=== PATIENT | male | born 2000 | race Caucasian/White ===

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

== ENCOUNTER → 2020-03-07 | Outpatient (REF) | payer OTHER ==
[2020-03-07 16:28] LABS: BASO % 0.6 % (0.0-1.0); EOS # 0.3 10^3/uL (0.0-0.5); EOS % 4.6 % (0.0-3.0); HEMATOCRIT 47.8 % (42.0-52.0); HEMOGLOBIN 15.8 g/dl (13.5-17.5); LYMPH # 2.2 10^3/uL (1.5-5.0); LYMPH % 33.9 % (24.0-44.0); MEAN CORPUSCULAR HGB CONC 33.1 g/dl (32.0-36.5); MEAN CORPUSCULAR VOLUME 87.9 fl (80.0-96.0); MONO # 0.6 10^3/uL (0.0-0.8); MONO % 10.1 % (0.0-5.0); NEUTROPHILS # 3.2 10^3/uL (1.5-8.5); NEUTROPHILS % 50.6 % (36.0-66.0); PLATELET COUNT, AUTOMATED 371 10^3/uL (150-450); RED BLOOD COUNT 5.44 10^6/uL (4.30-6.10); WHITE BLOOD COUNT 6.4 10^3/uL (4.0-10.0)
== END ==
LOC: M SFHCADAM 13:50
PROVIDERS: ATTEND Family Medicine
DX: R59.0 Localized enlarged lymph nodes (principal)

== ENCOUNTER 2021-02-23 12:23 | Emergency (ER) | payer OTHER ==
[~2021-02-23] VITALS: Ht 170.2 cm; Wt 75.0 kg
[2021-02-23 12:24] VITALS: BP 141/71
[2021-02-23] MEDS ORDERED: IBUP200T46 PO (12:42)
[2021-02-23 13:34] LABS: BASO % 0.7 % (0.0-1.0); EOS # 0.2 10^3/uL (0.0-0.5); EOS % 3.6 % (0.0-3.0); HEMATOCRIT 45.4 % (42.0-52.0); HEMOGLOBIN 15.7 g/dl (13.5-17.5); LYMPH # 2.2 10^3/uL (1.5-5.0); LYMPH % 39.3 % (24.0-44.0); MEAN CORPUSCULAR HEMOGLOBIN 30.3 pg (27.0-33.0); MEAN CORPUSCULAR HGB CONC 34.6 g/dl (32.0-36.5); MEAN CORPUSCULAR VOLUME 87.5 fl (80.0-96.0); MONO # 0.4 10^3/uL (0.0-0.8); MONO % 6.9 % (2.0-8.0); NEUTROPHILS # 2.7 10^3/uL (1.5-8.5); NEUTROPHILS % 49.1 % (36.0-66.0); PLATELET COUNT, AUTOMATED 357 10^3/uL (150-450); RED BLOOD COUNT 5.19 10^6/uL (4.30-6.10); WHITE BLOOD COUNT 5.5 10^3/uL (4.0-10.0)
[2021-02-23] MEDS ORDERED: ISOVUE-370 76% 100ML VIAL As Ordered ONE (13:43)
[2021-02-23 14:03] LABS: ALBUMIN 4.2 GM/DL (3.2-5.2); BILIRUBIN,DIRECT 0.1 MG/DL (0.0-0.2); BILIRUBIN,TOTAL 0.4 MG/DL (0.2-1.0); TOTAL PROTEIN 7.4 GM/DL (6.4-8.2)
== END 2021-02-23 15:55 | disposition home or self-care (01) ==
LOC: M ED 12:23
DX: R07.89 Other chest pain (principal); R06.02 Shortness of breath
CPT/HCPCS: 36415; 71275; 80047; 80076; 84484; 85025; 93005; 99284; Q9967

== ENCOUNTER 2022-07-13 17:18 | Emergency (ER) | payer OTHER ==
[~2022-07-13] VITALS: Ht 170.2 cm; Wt 77.1 kg
[~2022-07-13 17:18] MED LIST: IBUP200T46 PO
[2022-07-13] MEDS ORDERED: NS 1,000 ML IV ONE (17:45)
[2022-07-13] MEDS ORDERED: methylPREDNISolone 125MG 2ML VIAL IV ONE (17:45)
[2022-07-13] MEDS ORDERED: ALBUTEROL SULFATE 2.5MG/0.5ML INH NEB SOLN NEB SCH (17:45)
[2022-07-13] MEDS ORDERED: FAMOTIDINE 20MG/2ML VIAL IVP ONE (17:45)
[2022-07-13] MEDS ORDERED: diphenhydrAMINE 50MG/ML VIAL IV ONE (17:45)
[2022-07-13] MEDS ORDERED: ZYRTTAB8 PO (17:48)
[2022-07-13 18:15] LABS: BASO % 0.6 % (0.0-1.0); EOS # 0.1 10^3/uL (0.0-0.5); EOS % 1.5 % (0.0-3.0); HEMATOCRIT 47.3 % (42.0-52.0); HEMOGLOBIN 16.7 g/dl (13.5-17.5); LYMPH # 2.6 10^3/uL (1.5-5.0); MEAN CORPUSCULAR HEMOGLOBIN 30.3 pg (27.0-33.0); MEAN CORPUSCULAR HGB CONC 35.3 g/dl (32.0-36.5); MEAN CORPUSCULAR VOLUME 85.8 fl (80.0-96.0); MONO # 0.4 10^3/uL (0.0-0.8); MONO % 6.3 % (2.0-8.0); NEUTROPHILS # 3.7 10^3/uL (1.5-8.5); NEUTROPHILS % 53.5 % (36.0-66.0); PLATELET COUNT, AUTOMATED 380 10^3/uL (150-450); RED BLOOD COUNT 5.51 10^6/uL (4.30-6.10); WHITE BLOOD COUNT 6.9 10^3/uL (4.0-10.0)
[2022-07-13] MEDS ORDERED: ALPRAZolam 0.25 MG TAB PO STA (18:35)
[2022-07-13 18:40] LABS: BLOOD UREA NITROGEN 17 MG/DL (9-23); CARBON DIOXIDE LEVEL 27 MMOL/L (20-31); CHLORIDE LEVEL 105 MMOL/L (98-107); CREATININE FOR GFR 0.97 MG/DL (0.70-1.30); GLOMERULAR FILTRATION RATE > 60.0 (>60); GLUCOSE, FASTING 94 MG/DL (60-100); POTASSIUM SERUM 4.2 MMOL/L (3.5-5.1); SODIUM LEVEL 138 MMOL/L (136-145)
[2022-07-13 20:54] VITALS: BP 110/56
== END 2022-07-13 23:03 | disposition home or self-care (01) ==
LOC: M ED 17:18
DX: T78.04XA Anaphylactic reaction due to fruits and vegetables, initial encounter (principal); Z91.018 Allergy to other foods
CPT/HCPCS: 71045; 80048; 85025; 93005; 94640; 94760; 96361; 96374; 99284; J1200

== ENCOUNTER → 2022-07-29 | Outpatient (CLI) | payer OTHER ==
[~2022-07-29] MED LIST changes: +ZYRTTAB8 PO
== END ==
LOC: M WUC 09:11
PROVIDERS: ATTEND Nurse Practitioner Family
DX: R07.82 Intercostal pain (principal)

== ENCOUNTER → 2022-08-08 | Outpatient (REF) | payer OTHER ==
[2022-08-08 14:10] LABS: HEMATOCRIT 44.7 % (42.0-52.0); HEMOGLOBIN 15.2 g/dl (13.5-17.5); MEAN CORPUSCULAR HEMOGLOBIN 30.4 pg (27.0-33.0); MEAN CORPUSCULAR VOLUME 89.4 fl (80.0-96.0); PLATELET COUNT, AUTOMATED 348 10^3/uL (150-450); WHITE BLOOD COUNT 5.1 10^3/uL (4.0-10.0)
[2022-08-08 14:14] LABS: ALKALINE PHOSPHATASE 69 U/L (46-116); ALT/SGPT 28 U/L (7.0-40); AST/SGOT 19 U/L (<34); BILIRUBIN,TOTAL 0.6 MG/DL (0.3-1.2); BLOOD UREA NITROGEN 16 MG/DL (9-23); CALCIUM LEVEL 9.3 MG/DL (8.5-10.1); CARBON DIOXIDE LEVEL 30 MMOL/L (20-31); CHLORIDE LEVEL 104 MMOL/L (98-107); CHOLESTEROL LEVEL 216 MG/DL (<200); CHOLESTEROL RISK RATIO 4.29 (<5); CREATININE FOR GFR 0.95 MG/DL (0.70-1.30); GLOMERULAR FILTRATION RATE > 60.0 (>60); GLUCOSE, FASTING 75 MG/DL (60-100); HDL CHOLESTEROL 50.3 MG/DL (>40); LDL CHOLESTEROL 145.5 MG/DL (<100); NON-HDL-C 165.7 MG/DL; POTASSIUM SERUM 4.9 MMOL/L (3.5-5.1); SODIUM LEVEL 140 MMOL/L (136-145); TOTAL PROTEIN 6.5 G/DL (5.7-8.2); TRIGLYCERIDES LEVEL 101 MG/DL (<150)
[2022-08-08 14:18] LABS: THYROID STIMULATING HORMONE 1.636 uIU/ML (0.55-4.78)
[2022-08-08 14:19] LABS: FREE T4 1.35 NG/DL (0.89-1.76)
== END ==
LOC: M SFHCADAM 09:28
PROVIDERS: ATTEND Family Medicine
DX: T78.40XD Allergy, unspecified, subsequent encounter (principal); R07.89 Other chest pain

== ENCOUNTER → 2022-08-19 | Outpatient (REF) | payer OTHER | LOC: M SFHCADAM 12:57 | PROVIDERS: ATTEND Physician Assistant | DX: Z53.9 Procedure and treatment not carried out, unspecified reason (principal) ==

== ENCOUNTER → 2022-08-19 | Outpatient (CLI) | payer OTHER | LOC: M LAB 14:08 | PROVIDERS: ATTEND Physician Assistant | DX: R23.2 Flushing (principal) ==

== ENCOUNTER → 2022-08-19 | Outpatient (CLI) | payer OTHER | LOC: M WUC 13:42 | PROVIDERS: ATTEND Physician Assistant | DX: R23.2 Flushing (principal); Z53.9 Procedure and treatment not carried out, unspecified reason ==

== ENCOUNTER → 2022-08-21 | Outpatient (REF) | payer OTHER | LOC: M SFHCADAM 12:00 | PROVIDERS: ATTEND Physician Assistant | DX: R23.2 Flushing (principal) ==